=== PATIENT | male | born 1980 | race Two or more races ===

== ENCOUNTER 2022-10-21 14:30 | Inpatient (IN) | payer OTHER ==
[2022-10-21 15:28] VITALS: BMI 23.1
[2022-10-21] MEDS ORDERED: ONDANSETRON *ODT* 4 MG TABLET SL PRN (19:00)
[2022-10-21] MEDS ORDERED: IBUPROFEN 400 MG TABLET (FP) PO PRN (19:00)
[2022-10-21] MEDS ORDERED: BISMUTH SUBSALICYLATE 524 MG/30 ML PO PRN (19:00)
[2022-10-21] MEDS ORDERED: MAGNESIUM HYDROX 2400MG/30ML ORAL SUSPENSION 30 ML CUP PO PRN (19:00)
[2022-10-21] MEDS ORDERED: hydrOXYzine PAMOATE 25 MG CAPSULE (FP) PO PRN (19:00)
[2022-10-21] MEDS ORDERED: BENZONATATE 200 MG CAPSULE PO PRN (19:00)
[2022-10-21] MEDS ORDERED: NICOTINE POLACRILEX 2 MG GUM BUC PRN (19:00)
[2022-10-21] MEDS ORDERED: ACETAMINOPHEN 325 MG TABLET (FP) PO PRN (19:00)
[2022-10-21] MEDS ORDERED: IBUPROFEN 600 MG TABLET (FP) PO PRN (19:00)
[2022-10-21] MEDS ORDERED: NALOXONE HCL 0.4 MG/ML VIAL IM PRN (19:00)
[2022-10-21] MEDS ORDERED: LOPERAMIDE HCL 2 MG CAPSULE PO PRN (19:00)
[2022-10-21] MEDS ORDERED: AMMONIUM LACTATE 12% LOTION 225 GM BOTTLE TP PRN (19:00)
[2022-10-21] MEDS ORDERED: MAG HYDROX/AL HYDROX/SIMETH 30 ML UNIT-DOSE CUP PO PRN (19:00)
[2022-10-21] MEDS ORDERED: METHOCARBAMOL 500 MG TABLET PO PRN (19:00)
[2022-10-21] MEDS ORDERED: NALOXONE HCL (KLOXXADO) 8 MG SPRAY NS PRN (19:00)
[2022-10-21] MEDS ORDERED: chlordiazePOXIDE HCL 25 MG CAPSULE PO PRN (19:00)
[2022-10-21] MEDS ORDERED: BENZOCAINE/MENTHOL (CHLORASEPTIC ) LOZENGE MM PRN (19:00)
[2022-10-21] MEDS ORDERED: guaiFENesin 600 MG TABLET.ER (FP) PO PRN (19:00)
[2022-10-21] MEDS ORDERED: DICYCLOMINE HCL 10 MG CAPSULE PO PRN (19:00)
[2022-10-21] MEDS ORDERED: POLYETHYLENE GLYCOL (HEALTHYLAX) 3350 17 GM PACKET PO PRN (19:00)
[2022-10-21] MEDS: THIAMINE HCL 100 MG TABLET (FP) PO SCH (22:51)
[2022-10-21] MEDS: MELATONIN 5 MG TABLETS PO SCH (22:51)
[2022-10-21] MEDS: chlordiazePOXIDE HCL 25 MG CAPSULE PO SCH (22:52)
[2022-10-22] MEDS: chlordiazePOXIDE HCL 25 MG CAPSULE PO SCH ×4 (05:48→22:15)
[2022-10-22] MEDS: PRENATAL VITAMINS W/ FOLIC ACID TABLET (FP) PO SCH (10:28)
[2022-10-22] MEDS: NICOTINE 14 MG/24 HOURS TOPICAL PATCH TD SCH (10:30)
[2022-10-22 10:48] LABS: HEMOGLOBIN 14.9 GM/dL (11.7-16.9); MCH 29.4 pg (25.7-33.7); MCHC 33.8 g/dl (32.0-35.9); MEAN CELL VOLUME 87.1 fl (80-96); MEAN PLT VOLUME 9.2 fl (7.5-11.1); PLATELET COUNT 267 10^3/uL (134-434); RBC 5.06 M/mm3 (4.00-5.60); RDW 14.5 % (11.9-15.9); WHITE BLOOD COUNT 7.9 K/mm3 (4.0-10.0)
[2022-10-22 10:54] LABS: POTASSIUM 4.4 mmol/L (3.5-5.1)
[2022-10-22 11:04] LABS: CALCIUM 8.5 mg/dL (8.5-10.1)
[2022-10-22 11:05] LABS: ALBUMIN 3.1 g/dl (3.4-5.0)
[2022-10-22 11:06] LABS: BILIRUBIN,TOTAL 0.7 mg/dL (0.2-1)
[2022-10-22 11:08] LABS: CREATININE 0.8 mg/dL (0.55-1.3)
[2022-10-22] MEDS: MELATONIN 5 MG TABLETS PO SCH (22:15)
[2022-10-22] MEDS: THIAMINE HCL 100 MG TABLET (FP) PO SCH (22:15)
[2022-10-23] MEDS: chlordiazePOXIDE HCL 25 MG CAPSULE PO SCH ×2 (05:47→10:17)
[2022-10-23] MEDS: PRENATAL VITAMINS W/ FOLIC ACID TABLET (FP) PO SCH (10:16)
[2022-10-23] MEDS: NICOTINE 14 MG/24 HOURS TOPICAL PATCH TD SCH (10:16)
[2022-10-23] MEDS ORDERED: LORazepam 1 MG TABLET PO PRN (15:50)
[2022-10-23] MEDS: LORazepam 2 MG TABLET PO SCH ×2 (17:18→22:23)
[2022-10-23] MEDS: MELATONIN 5 MG TABLETS PO SCH (22:23)
[2022-10-23] MEDS: THIAMINE HCL 100 MG TABLET (FP) PO SCH (22:23)
[2022-10-24] MEDS ORDERED: chlordiazePOXIDE HCL 10 MG CAPSULE PO PRN
[2022-10-24] MEDS ORDERED: chlordiazePOXIDE HCL 10 MG CAPSULE PO SCH (05:00)
[2022-10-24] MEDS: LORazepam 1 MG TABLET PO SCH ×4 (05:47→22:24)
[2022-10-24] MEDS: NICOTINE 14 MG/24 HOURS TOPICAL PATCH TD SCH (11:15)
[2022-10-24] MEDS: PRENATAL VITAMINS W/ FOLIC ACID TABLET (FP) PO SCH (11:16)
[2022-10-24] MEDS: THIAMINE HCL 100 MG TABLET (FP) PO SCH (22:24)
[2022-10-24] MEDS: MELATONIN 5 MG TABLETS PO SCH (22:25)
[2022-10-25] MEDS ORDERED: chlordiazePOXIDE HCL 10 MG CAPSULE PO SCH (05:00)
[2022-10-25] MEDS: LORazepam 0.5 MG TABLET PO SCH ×4 (05:55→22:38)
[2022-10-25] MEDS: NICOTINE 14 MG/24 HOURS TOPICAL PATCH TD SCH (10:13)
[2022-10-25] MEDS: PRENATAL VITAMINS W/ FOLIC ACID TABLET (FP) PO SCH (10:13)
[2022-10-25] MEDS: THIAMINE HCL 100 MG TABLET (FP) PO SCH (22:38)
[2022-10-25] MEDS: MELATONIN 5 MG TABLETS PO SCH (22:39)
[2022-10-26] MEDS ORDERED: LORazepam 0.5 MG TABLET PO PRN
[2022-10-26] MEDS ORDERED: LORazepam 0.5 MG TABLET PO ONE (05:00)
[2022-10-26] MEDS ORDERED: chlordiazePOXIDE HCL 10 MG CAPSULE PO ONE (05:00)
[2022-10-26 06:37] VITALS: RESP 18
[2022-10-26 10:04] VITALS: BP 125/75; PULSE 85; TEMP 97.8
[2022-10-26] MEDS: NICOTINE 14 MG/24 HOURS TOPICAL PATCH TD SCH (10:48)
[2022-10-26] MEDS: PRENATAL VITAMINS W/ FOLIC ACID TABLET (FP) PO SCH (10:49)
== END 2022-10-26 11:20 | disposition other institution (70) | DRG 774 ==
LOC: YASAS 14:30 → Y6N 19:21
PROVIDERS: ADMIT Allergy & Immunology; ATTEND Surgery
PROC: HZ2ZZZZ Detoxification Services for Substance Abuse Treatment (ICD-10-PCS; principal; 2022-10-21)
DX: F10.230 Alcohol dependence with withdrawal, uncomplicated (principal); F14.20 Cocaine dependence, uncomplicated; F17.210 Nicotine dependence, cigarettes, uncomplicated; R73.03 Prediabetes
CPT/HCPCS: 36415; 80053; 83036; 85027; 86780; 87635; 87811